=== PATIENT | female | born 1970 | race Caucasian/White ===

== ENCOUNTER → 2017-01-29 | Outpatient (CLI) | payer BC ==
[~2017-01-29] MED LIST: CHOL100010 PO; ERGO1CAP35 PO; ESZO1TAB16 PO; LEVO50TA PO
[2017-01-29 11:02] LABS: BASO % 0.3 %; BASO ABS # 0.02 K/uL (0-0.2); COMPLETE YES; EOS % 1.6 %; HEMATOCRIT 40.4 % (37-47); IG% 0.3 %; LYMPH ABS # 1.85 K/uL (1.2-3.4); MEAN CELL VOLUME 86.9 fL (80-100); MEAN CORPUSCULAR HGB CONC 33.4 g/dl (32-36); MEAN PLATELET VOLUME 10.7 fL (7.4-10.4); MONO % 5.4 %; NEUT % 60.4 %; PLATELET COUNT 206 K/uL (130-400); RED BLOOD COUNT 4.65 M/uL (4.2-5.4); WHITE BLOOD COUNT 5.79 K/uL (4.8-10.8)
[2017-01-29 11:28] LABS: ALT/SGPT 68 U/L (12-78); BLOOD UREA NITROGEN 15 mg/dl (7-18); CALCIUM 9.4 mg/dl (8.5-10.1); CARBON DIOXIDE 30 mmol/L (21-32); CHLORIDE 104 mmol/L (98-107); CHOLESTEROL 221 mg/dl (0-200); CREATININE 0.81 mg/dl (0.60-1.20); GLUCOSE 112 mg/dl (70-99); MAGNESIUM 1.9 mg/dl (1.8-2.4); POTASSIUM 4.2 mmol/L (3.5-5.1); SODIUM 141 mmol/L (136-145)
[2017-01-29 11:37] LABS: ALB/GLOB RATIO 0.9 (0.9-2); ALKALINE PHOSPHATASE 116 U/L (45-117); AST/SGOT 43 U/L (15-37); CHOLESTEROL/HDL RATIO 3.6; HDL CHOLESTEROL 61 mg/dl; LDL CHOLESTEROL CALCULATED 132 mg/dl; RHEUMATOID FACTOR < 10.0 U/mL (0-15); TRIGLYCERIDES 139 mg/dl (0-150); VERY LOW DENSITY LIPOPROT CALC 28 mg/dl
[2017-01-29 14:12] LABS: LYME DISEASE AB IGG NEG (NEG)
[2017-01-29 14:13] LABS: LYME DISEASE AB IGM NEG (NEG)
== END | disposition home or self-care (01) ==
LOC: C.LAB 09:12
PROVIDERS: ATTEND Physician Assistant
DX: M25.50 Pain in unspecified joint (principal); R53.83 Other fatigue; R10.9 Unspecified abdominal pain; E78.5 Hyperlipidemia, unspecified; E66.01 Morbid (severe) obesity due to excess calories; E03.9 Hypothyroidism, unspecified; E55.9 Vitamin D deficiency, unspecified; E53.8 Deficiency of other specified B group vitamins

== ENCOUNTER → 2017-02-07 | Outpatient (CLI) | payer BC ==
--- NOTE | 2017-02-07 15:57 | DIAGNOSTIC IMAGING REPORT ---
THYROID ULTRASOUND HISTORY: Clear POSSIBLE GOITER E04.9 COMPARISON: None. FINDINGS: Right lobe: Maximum dimension 4.4 cm. No nodularity Left lobe: Maximum dimension 3.9 cm. No nodularity. Isthmus: No nodules. IMPRESSION: Normal thyroid ultrasound. Electronically signed by: Kvng Baird M.D. 02/07/2017 3:56 PM Dictated Date/Time: 02/07/2017 3:55 PM
== END | disposition home or self-care (01) ==
LOC: C.ULTR 15:29
PROVIDERS: ATTEND Physician Assistant
DX: E04.9 Nontoxic goiter, unspecified (principal)

== ENCOUNTER → 2018-02-27 | Outpatient (CLI) | payer OTHER ==
--- NOTE | 2018-02-27 13:38 | DIAGNOSTIC IMAGING REPORT ---
KUB CLINICAL HISTORY: R10.9 NEPHROLITHIASIS COMPARISON STUDY: April 14, 2015 FINDINGS: There is no pathologic bowel dilatation. There are surgical clips within the right upper quadrant. There are no calcifications suspicious for renal calculi. IMPRESSION: No renal calculi identified on conventional radiographic evaluation Electronically signed by: Jeff Hill M.D. 02/27/2018 1:37 PM Dictated Date/Time: 02/27/2018 1:36 PM
== END | disposition home or self-care (01) ==
LOC: C.RAD 13:02
PROVIDERS: ATTEND Nurse Practitioner Family
DX: R10.9 Unspecified abdominal pain (principal)